=== PATIENT | male | born 1975 ===

== ENCOUNTER 2019-03-06 07:20 | Inpatient (IN) | payer OTHER, MEDICARE ==
[~2019-03-06 07:20] MED LIST: cefOXitin 2 GM Vial ONE
[2019-03-06] MEDS ORDERED: Acetaminophen 500 MG Tab PO ONE (07:40)
[2019-03-06] MEDS ORDERED: Gabapentin 300 MG Cap PO ONE (07:40)
[2019-03-06] MEDS ORDERED: Celecoxib 200 MG Cap PO ONE (07:40)
[2019-03-06] MEDS ORDERED: Dextrose 5%-Lactated Ringers 1,000 ML IV SCH (07:40)
[2019-03-06] MEDS ORDERED: Scopolamine 1.5 MG Transdermal Patch TOP SCH (07:40)
[2019-03-06] MEDS ORDERED: Glycopyrrolate 0.2 MG/ML 5 ML MDV ONE (07:48)
[2019-03-06] MEDS ORDERED: Rocuronium 50 MG/5 ML Vial ONE ×2 (07:48→09:48)
[2019-03-06] MEDS ORDERED: Neostigmine Methylsulfate 1 MG/ML 5 ML Syringe ONE (07:48)
[2019-03-06] MEDS ORDERED: Propofol 200 MG/20 ML SDV ONE (07:48)
[2019-03-06] MEDS ORDERED: Dexamethasone 4 MG/ML SDV ONE (07:48)
[2019-03-06] MEDS ORDERED: Succinylcholine 200 MG/10 ML MDV ONE (07:48)
[2019-03-06] MEDS ORDERED: Ondansetron 4 MG/2 ML SDV ONE (07:48)
[2019-03-06] MEDS ORDERED: cefOXitin 2 GM in Sodium Chloride 0.9% 50 ML IV ONE (08:00)
[2019-03-06] MEDS ORDERED: Metoprolol Succinate 50 MG Tab.ER PO ONE (08:20)
[2019-03-06] MEDS ORDERED: amLODIPine 10 MG Tab PO ONE (08:20)
[2019-03-06 08:26] LABS: HEMOGLOBIN A1C 8.9 % (4.5-6.2)
[2019-03-06] MEDS ORDERED: Ketamine 50 MG in Sodium Chloride 0.9% 49.5 ML IV SCH (09:00)
[2019-03-06] MEDS ORDERED: Lidocaine 2% 100 MG/5 ML Syringe IVPUSH SCH (09:00)
[2019-03-06] MEDS ORDERED: Lidocaine 0.4%/D5W 2 GM/500 ML BAG IV SCH (09:00)
[2019-03-06] MEDS ORDERED: Ketamine 500 MG/5 ML MDV IV SCH (09:00)
[2019-03-06] MEDS ORDERED: Lactated Ringers 1,000 ML ONE ×2 (10:00→11:42)
[2019-03-06] MEDS ORDERED: fentaNYL 100 MCG/2 ML SDV IVPUSH ONE ×2 (13:55→14:17)
[2019-03-06] MEDS ORDERED: hydrOXYzine HCl 100 MG/2 ML SDV IM ONE (13:55)
[2019-03-06] MEDS ORDERED: diphenhydrAMINE 50 MG/ML SDV IVPUSH PRN (15:53)
[2019-03-06] MEDS ORDERED: Labetalol 20 MG/4 ML Syringe IVPUSH PRN (15:53)
[2019-03-06] MEDS ORDERED: HYDROmorphone 0.5 MG/0.5 ML Syringe IVPUSH PRN (15:53)
[2019-03-06] MEDS ORDERED: Metoclopramide 10 MG/2 ML SDV IVPUSH PRN (15:53)
[2019-03-06] MEDS ORDERED: Ondansetron 4 MG/2 ML SDV IVPUSH PRN (15:53)
[2019-03-06] MEDS ORDERED: hydrOXYzine HCl 100 MG/2 ML SDV IM PRN (15:53)
[2019-03-06] MEDS: HYDROmorphone 1 MG/ML Syringe IV PRN ×2 (16:11→22:59)
[2019-03-06] MEDS: cefOXitin 2 GM in Sodium Chloride 0.9% 50 ML IV SCH ×2 (16:16→21:22)
[2019-03-06] MEDS: SCOPOLAMINE PATCH CHECK TOP SCH (16:21)
[2019-03-06] MEDS: Acetaminophen 325 MG Tab PO SCH ×2 (16:22→21:07)
[2019-03-06] MEDS: Heparin Sodium 5,000 Units/ML Vial SUBCUT SCH ×2 (16:22→23:00)
[2019-03-06] MEDS: Insulin Lispro 100 Unit/ML 3 ML KwikPen SUBCUT PRN ×2 (16:32→21:08)
[2019-03-06] MEDS ORDERED: Pantoprazole 40 MG Vial IVPUSH SCH (17:00)
[2019-03-06] MEDS ORDERED: MVI, Adult with Vitamin K 10 ML, Thiamine 200 MG, Chromium/Copper/Mang/Selen/Zn 1 ML in... IV SCH ×4 (17:00)
[2019-03-06] MEDS ORDERED: Insulin Glargine,Human Rec. Analog 100 Units/ML 3 ML Pen SUBCUT SCH (21:00)
[2019-03-06] MEDS ORDERED: Metoprolol Succinate 25 MG Tab.ER PO ONE (21:00)
[2019-03-06] MEDS: Gabapentin 250 MG/5 ML Solution ML 470 ML Bottle PO SCH (21:22)
[2019-03-06] MEDS: Dextrose 5%-Lactated Ringers 1,000 ML IV SCH (23:53)
[2019-03-07] MEDS: HYDROmorphone 1 MG/ML Syringe IV PRN ×2 (03:26→07:06)
[2019-03-07] MEDS: cefOXitin 2 GM in Sodium Chloride 0.9% 50 ML IV SCH (03:26)
[2019-03-07] MEDS ORDERED: Iopamidol 612 MG/ML 50 ML SDV PO STA (03:29)
[2019-03-07] MEDS: Acetaminophen 325 MG Tab PO SCH ×4 (03:30→23:06)
--- NOTE | 2019-03-07 04:53 | CRLCR ---
Indication: Status post duodenal switch. Check for leak. Technique: Abdomen 5 view. Comparison: None. Findings: Five static images from an upper GI study are submitted for review. Per report, patient is status post duodenal switch procedure. Two surgical drains in the left upper quadrant. Over the course of the 5 images, contrast is seen to pass from the gastric pouch into multiple small bowel loops in the left abdomen. Small bowel loops are normal in caliber. No evidence of extraluminal contrast leak. Air is seen within the colon. The lung bases are clear. Impression: No evidence of extraluminal contrast leak. Dictated by Yanni Valdovinos MD @ Mar 07 2019 8:59AM Signed by Dr. Yanni Valdovinos @ Sep 2018 9:04AM
[2019-03-07] MEDS: Dextrose 5%-Lactated Ringers 1,000 ML IV SCH (05:42)
[2019-03-07] MEDS: Insulin Lispro 100 Unit/ML 3 ML KwikPen SUBCUT PRN ×2 (05:43→10:20)
[2019-03-07] MEDS ORDERED: Ondansetron 4 MG Tab.DIS PO PRN (07:04)
[2019-03-07] MEDS ORDERED: Insulin Glargine,Human Rec. Analog 100 Units/ML 3 ML Pen SUBCUT ONE (07:30)
[2019-03-07] MEDS: Celecoxib 200 MG Cap PO SCH (07:58)
[2019-03-07] MEDS: Heparin Sodium 5,000 Units/ML Vial SUBCUT SCH ×3 (08:01→23:05)
[2019-03-07] MEDS: SCOPOLAMINE PATCH CHECK TOP SCH (08:02)
[2019-03-07] MEDS: Lactated Ringers 1,000 ML IV SCH ×2 (08:05→21:42)
[2019-03-07] MEDS: Gabapentin 250 MG/5 ML Solution ML 470 ML Bottle PO SCH ×3 (08:05→20:16)
[2019-03-07] MEDS: Magnesium Sulfate/Water 2 GM in Premix Bag 1 BAG IV SCH ×3 (09:00→20:17)
[2019-03-07] MEDS: amLODIPine 10 MG Tab PO SCH (09:04)
--- NOTE | 2019-03-07 10:31 | PN ---
DATE OF SERVICE: 03/07/2019 SUBJECTIVE: Diaz is postoperative day #1 following a duodenal switch. His blood sugars have been 283, 273, and 303. Vital signs have been stable with the exception of his last 2 blood pressure readings have been slightly elevated at 153/80 and 169/97. Reports that he has numbness and tingling from his shoulders down to his fingertips and he is unable to move his arms. He can bring his right arm up to his face, but then it will just drop. He reports the numbness and tingling, but no pain. Concerned about his left arm, he is unable to bring it up, he is unable to move it with the exception of his fingers. Nursing staff has noticed him moving both arms, but at the time of report, the left arm, he states he is unable to move it. REVIEW OF SYSTEMS: Remainder of review of systems negative for any pertinent positives and negatives. LABORATORY DATA: White count 18.6, hemoglobin is 13.3, potassium was 4.7, creatinine 2.3. Estimated glomerular filtration rate is 31. Magnesium is 1.6. OBJECTIVE: GENERAL: Diaz Molina is a 43-year-old male. He is resting on his back with the CPAP on and he does remove it. He currently will bring up his right hand and it will drop, and he can move his left fingers but unable to lift it. VITAL SIGNS: TPR is 96.2, 88, 18, blood pressure 169/97, he has 98% of O2 sats by pulse oximetry. HEENT: Negative. NECK: Supple. HEART: Regular rate and rhythm. LUNGS: Clear. ABDOMEN: Dressings dry and intact. Abdominal binder is on. He has two RIGO drains, which are draining out a light red drainage. RIGO drain #1 is 60 mL, and RIGO drain #2 is 60. GENITOURINARY: Barnard catheter is in place and draining a clear irineo urine, 2695. EXTREMITIES: Without peripheral edema. SCDs are on. ASSESSMENT: 1. Laparoscopic duodenal switch. 2. Liver biopsy. 3. Repair of diaphragmatic hernia for morbid obesity, hepatomegaly, and diaphragmatic hernia. Date of surgery: 03/06/2019. Surgeon: Anish Morton MD. PLAN: 1. Discontinue Barnard catheter. 2. Step 2 gastric bypass diet without cereal. 3. Change IV to lactated Ringer's, continue rate at 150 mL/h. 4. Magnesium sulfate 2 g IV q.6 hours x72 hours. 5. Discontinue cefoxitin. 6. Discontinue D5 LR IV. 7. Zofran ODT 4 mg q.4 hours p.r.n. nausea. 8. Check CBC, CMP, phos, BNP in a.m. 9. Lantus 50 units subcu one time now. 10.Lantus 30 units subcu starting at bedtime. 11.Alogliptin (Januvia) 25 mg p.o. daily. 12.Restart home medications: a. Norvasc 10 mg p.o. daily. b. Lisinopril/hydrochlorothiazide 50/25 mg one daily. c. Metoprolol-XL 50 mg was already started. d. Dilaudid 2-4 mg every 4 hours for severe pain if Atarax does not cover pain. e. Atarax 100 mg p.o. q.4 hours p.r.n. anxiety and/or pain. f. Ativan 0.5 mg IV push every 2 hours p.r.n. pain if the Vistaril does not cover the anxiety. 13.Consult hospitalist, Estevan Bang MD, in regard to bilateral paresthesias upper and lower arms. 14.Good pulmonary toilet. 15.We will evaluate p.r.n. or in a.m. Yanni Roper PA-C /[id number]
[2019-03-07] MEDS: LORazepam 2 MG/ML SDV IVPUSH PRN ×2 (10:44→22:03)
[2019-03-07] MEDS: MVI, Adult with Vitamin K 10 ML, Thiamine 200 MG, Chromium/Copper/Mang/Selen/Zn 1 ML in... IV SCH ×8 (14:54→16:01)
--- NOTE | 2019-03-07 15:12 | PCM.CONS ---
H&P History of Present Illness - General Date of Service: 03/07/19 Admit Problem/Dx: Admission Diagnosis/Problem Admission Diagnosis/Problem Obesity Source of Information: Patient, Provider History Limitations: Reports: No Limitations - History of Present Illness Initial Comments - Free Text/Narative: CC: my arms are numb HPI: Jayson was admitted yesterday for duodenal switch to aid in weight loss. I was asked to see him today by Dr. Morton regarding upper extremity paresthesias.Post operatively he has developed numbness, tingling, burning pain and weakness in both arms below the elbow. Initially it was mostly numbness and difficulty with coordination but overnight he developed some weakness. he describes a mild burning pain that is worse with any sort of pressure. This pain extends from his elbows distally to his fingers. It goes away when no one is touching his arms. Pain seems to be getting a little bit better throughout the day. He has had difficulty grasping objects and has been clumsy with his hands. He thinks his right hand is stronger than the left and is having slightly more difficulty with the left side. He feels like his brain is not communicating with the arms and especially the left arm. He has been seen by occupational therapy twice today. He has been moving better throughout the course of the day. No complaints of headache. Abdominal pain is minimal at this time. He's never had trouble like this in the past. He has had difficulty with neck and back issues. Abdomen Pain Score (Numeric/FACES): 8 - Related Data Allergies/Adverse Reactions: Allergies Allergy/AdvReac Type Severity Reaction Status Date / Time No Known Allergies Allergy Verified 03/06/19 08:09 Home Medications: Home Meds Acetaminophen/Caffeine [Excedrin Tension Headache] 1 tab PO Q6H PRN 03/02/19 [ History] Ergocalciferol (Vitamin D2) [Vitamin D2] 50,000 unit PO MOWEFR 03/02/19 [History ] Gabapentin [Neurontin] 300 mg PO DAILY 03/02/19 [History] Insulin Aspart [NovoLOG] 47 units SQ TID 03/02/19 [History] Insulin Glargine,Hum.Rec.Anlog [Lantus Solostar] 60 units SQ Q12H 03/02/19 [ History] Lisinopril/Hydrochlorothiazide [Lisinopril-Hctz 20-25 mg Tab] 2 each PO BEDTIME 03/02/19 [History] Metoprolol Succinate [Toprol Xl] 50 mg PO DAILY 03/02/19 [History] Omeprazole Magnesium [Prilosec Otc] 40 mg PO DAILY 03/02/19 [History] amLODIPine Besylate [Norvasc] 10 mg PO DAILY 03/02/19 [History] metFORMIN [Glucophage XR] 1,000 mg PO BIDMEALS 03/07/19 [History] Past Medical History HEENT History: Reports: Other (See Below) Other HEENT History: wears glasses Cardiovascular History: Reports: Hypertension Respiratory History: Reports: Sleep Apnea Gastrointestinal History: Reports: GERD Genitourinary History: Reports: Other (See Below) Other Genitourinary History: born with 1 kidney Musculoskeletal History: Reports: Other (See Below) Other Musculoskeletal History: right knee meniscus tear Psychiatric History: Reports: Anxiety, Depression Endocrine/Metabolic History: Reports: Diabetes, Type II, Obesity/BMI 30+ - Infectious Disease History Infectious Disease History: Reports: Chicken Pox - Past Surgical History GI Surgical History: Reports: Hernia Repair/Other Musculoskeletal Surgical History: Reports: Arthroscopic Knee Social & Family History - Family History Cardiac: Denies: CAD - Tobacco Use Smoking Status *Q: Never Smoker - Caffeine Use Caffeine Use: Reports: Coffee - Recreational Drug Use Recreational Drug Use: No H&P Review of Systems - Review of Systems: Review Of Systems: See Below Free Text/Narrative: A complete 12 point review of systems was obtained. Pertinent positives and negatives are noted in the history of present illness. All other systems were reviewed and were negative except as noted. Exam - Exam Exam: See Below - Vital Signs Vital Signs: Last Vital Signs Temp 35.6 C 03/07/19 14:45 Pulse 86 03/07/19 14:45 Resp 18 03/07/19 14:45 BP 139/86 03/07/19 14:45 Pulse Ox 100 03/07/19 14:45 Weight: 180.62 kg - Exam Quality Assessment: Supplemental Oxygen General: Alert, Oriented, Cooperative. No: Mild Distress HEENT: Conjunctiva Clear, Mucosa Moist & Excello Neck: Supple, Trachea Midline Lungs: Normal Respiratory Effort. No: Wheezing Cardiovascular: Regular Rate, Regular Rhythm GI/Abdominal Exam: Soft, No Distention Extremities: No Pedal Edema. No: Increased Warmth Skin: Warm, Dry Neuro Extensive - Mental Status: Alert, Oriented x3, Nl Response to Commands Neuro Extensive - Motor, Sensory, Reflexes: Abnormal Sensation, Abnormal Light Touch, Abnormal Motor (right hand slightly stronger than the left). No: Dysarthria, Tremor Psychiatric: Alert, Normal Affect - Patient Data Lab Results Last 24 hrs: Laboratory Results - last 24 hr 03/07/19 03/07/19 Range/Units 04:00 04:00 WBC 18.6 H (4.5-11.0) K/uL RBC 4.61 (4.30-5.90) M/uL Hgb 13.3 (12.0-15.0) g/dL Hct 40.1 (40.0-54.0) % MCV 87 (80-98) fL MCH 29 (27-31) pg MCHC 33 (32-36) % Plt Count 381 (150-400) K/uL Neut % (Auto) 89 H (36-66) % Lymph % (Auto) 6 L (24-44) % [place] % (Auto) 6 (2-6) % Eos % (Auto) 0 L (2-4) % Baso % (Auto) 0 (0-1) % Sodium 134 L (140-148) mmol/L Potassium 4.7 (3.6-5.2) mmol/L Chloride 98 L (100-108) mmol/L Carbon Dioxide 25 (21-32) mmol/L Anion Gap 15.7 H (5.0-14.0) mmol/L BUN 23 H (7-18) mg/dL Creatinine 2.3 H (0.8-1.3) mg/dL Est Cr Clr Drug Dosing 48.15 mL/min Estimated GFR (MDRD) 31 L (>60) Glucose 303 H (74-106) mg/dL Calcium 8.9 (8.5-10.1) mg/dL Phosphorus 3.1 (2.5-4.9) mg/dL Magnesium 1.6 L (1.8-2.4) mg/dL Total Bilirubin 0.4 (0.2-1.0) mg/dL AST 477 H (15-37) U/L ALT 455 H (12-78) U/L Alkaline Phosphatase 65 (46-116) U/L NT-Pro-B Natriuret Pep 149 H (5-125) pg/mL Total Protein 7.8 (6.4-8.2) g/dL Albumin 3.3 L (3.4-5.0) g/dL Globulin 4.5 H (2.3-3.5) g/dL Albumin/Globulin Ratio 0.7 L (1.2-2.2) Result Diagrams: 03/07/19 04:00 03/07/19 04:00 Consult PN Assessment/Plan POD#: 1 Procedures: Procedures BLOOD TYPING SEROLOGIC ABO (01/05/19) BLOOD TYPING SEROLOGIC RH(D) (01/05/19) RBC ANTIBODY SCREEN (01/05/19) Problem List Initiated/Reviewed/Updated: Yes Plan: ASSESSMENT AND PLAN - Upper extremity paresthesias - suspect thoracic outlet syndrome, most likely related to nerve compression. Cannot completely rule out a vascular component at this time though no obvious differences in temperature or pulse at this time. Seems to be slowly getting better throughout the day. Motor seems to be intact for the most part with sensation affected most significantly at this time. I would anticipate this will continue to improve and resolve over a short period of time. -Physical and occupational therapy -Consider vascular imaging if not improving over the next 24-48 hours Morbid obesity status post duodenal switch - pain well-controlled at this time. Vitals are stable. -Postoperative cares per surgical team Estevan Bang M.D. Requesting Provider: Dr. Morton Date Consult Requested: 03/07/19 Reason for Consult: upper extremity paresthesias Patient History Reviewed: Yes Admission H&P Reviewed: Yes Notified Requestor: No Time Spent (in minutes): 45
[2019-03-07] MEDS: HYDROmorphone 2 MG Tab PO PRN ×2 (15:28→20:16)
[2019-03-07] MEDS: Pantoprazole 40 MG Delayed-Release Granules 1 Packet PO SCH (16:03)
[2019-03-07] MEDS: hydrOXYzine HCl 25 MG Tab PO PRN ×2 (17:30→21:41)
[2019-03-07] MEDS: Lisinopril 20 MG Tab PO SCH (20:17)
[2019-03-07] MEDS: Hydrochlorothiazide 25 MG Tab PO SCH (20:18)
[2019-03-07] MEDS: Metoprolol Succinate 50 MG Tab.ER PO SCH (20:18)
[2019-03-07] MEDS ORDERED: Insulin Glargine,Human Rec. Analog 100 Units/ML 3 ML Pen SUBCUT SCH (21:00)
[2019-03-08] MEDS: Magnesium Sulfate/Water 2 GM in Premix Bag 1 BAG IV SCH ×4 (02:55→20:14)
[2019-03-08] MEDS: Lactated Ringers 1,000 ML IV SCH (04:42)
[2019-03-08] MEDS: Acetaminophen 325 MG Tab PO SCH ×4 (04:58→21:41)
[2019-03-08] MEDS: hydrOXYzine HCl 25 MG Tab PO PRN (05:15)
[2019-03-08] MEDS ORDERED: Cyanocobalamin (Vitamin B12) 1,000 MCG/ML SDV IM ONE (09:00)
[2019-03-08] MEDS: HYDROmorphone 2 MG Tab PO PRN ×3 (09:08→21:39)
[2019-03-08] MEDS: Celecoxib 200 MG Cap PO SCH (09:09)
[2019-03-08] MEDS: Gabapentin 250 MG/5 ML Solution ML 470 ML Bottle PO SCH ×3 (09:09→21:48)
[2019-03-08] MEDS: amLODIPine 10 MG Tab PO SCH (09:10)
[2019-03-08] MEDS: Heparin Sodium 5,000 Units/ML Vial SUBCUT SCH ×2 (09:14→16:53)
[2019-03-08] MEDS: SCOPOLAMINE PATCH CHECK TOP SCH (09:16)
--- NOTE | 2019-03-08 09:40 | PN ---
DATE OF SERVICE: 03/08/2019 SUBJECTIVE: Jayson is postop day 2. He remains to report the numbness and tingling in his left arm. He is moving it. Vital signs have been stable. Oral intake 1920. Urine output 3000 mL. RIGO drain 1 and 2 have put out 100 and 70 respectively. Blood sugars have decreased. His last blood sugar in the past 24 hours 199, 186, and 183. He did have a hospitalist consult and his numbness and difficulty with coordination thought to be thoracic outlet syndrome. REVIEW OF SYSTEMS: Remainder of review of systems negative for any pertinent positives and negatives. OBJECTIVE: GENERAL: Diaz Molina is a 43-year-old male. He has a CPAP on, but is able to converse with that on. VITAL SIGNS: TPR is 96.2, 84, 16. Blood pressure is 163/84. HEENT: Negative. NECK: Supple. HEART: Regular rate and rhythm. LUNGS: Clear. ABDOMEN: Dressing is dry and intact. Abdominal binder is on. RIGO drains x2 intact. EXTREMITIES: Without peripheral edema. ASSESSMENT: 1. Laparoscopic duodenal switch. 2. Liver biopsy. 3. Repair of diaphragmatic hernia for morbid obesity, hepatomegaly, and diaphragmatic hernia. Date of surgery 03/06/2019. Surgeon, Anish Morton MD. 4. Diabetes type 2. 5. Questionable thoracic outlet syndrome. PLAN: 1. Check ultrasound to rule out DVT, left upper extremity. 2. Lantus 20 units subcu b.i.d. 3. Saline lock IV. 4. May shower. 5. Good pulmonary toilet. 6. We will evaluate p.r.n. or in a.m. Yanni Roper PA-C /[id number]
--- NOTE | 2019-03-08 10:59 | CRLCR ---
INDICATION: Thoracic outlet syndrome. Evaluate 1st ribs. COMPARISON: none TECHNIQUE: PA chest and bilateral ribs. FINDINGS: There is mild enlargement of the cardiac silhouette but no evidence of vascular congestion. Lungs are clear. There is no evidence of pneumothorax. There is no evidence of a cervical rib. There is attenuation of the posterior right 2nd rib. The left ribs appear normal. IMPRESSION: Attenuated and thinned appearance of the posterior right 2nd rib. No evidence of a suspicious soft tissue mass. No evidence of a cervical rib. Dictated by Alin Meadows MD @ 03/08/2019 10:58:20 AM Dictated by: Alin Meadows MD @ 03/08/2019 10:58:27 (Electronically Signed)
[2019-03-08] MEDS: Pantoprazole 40 MG Delayed-Release Granules 1 Packet PO SCH ×2 (11:03→16:42)
[2019-03-08] MEDS: Insulin Glargine,Human Rec. Analog 100 Units/ML 3 ML Pen SUBCUT SCH ×2 (11:04→21:49)
--- NOTE | 2019-03-08 12:19 | PCM.CONSN ---
- General Info Date of Service: 03/08/19 Subjective Update: No acute events overnight. Numbness and tingling are much better but not quite resolved. Right hand is nearly back to normal. Left hand is much improved but not back to normal. Strength seems better. Still having a little difficulty with coordination of the left hand. No fevers. Abdominal pain from surgery is well-controlled. Ultrasounds of the upper extremity venous and arterial vasculature have been completed but results are pending. Functional Status: Reports: Pain Controlled, Tolerating Diet - Patient Data Vitals - Most Recent: Last Vital Signs Temp 35.8 C 03/08/19 10:54 Pulse 92 03/08/19 10:54 Resp 16 03/08/19 10:54 BP 166/80 H 03/08/19 10:54 Pulse Ox 95 03/08/19 10:54 Weight - Most Recent: 180.62 kg I&O - Last 24 Hours: Intake & Output 03/07/19 03/08/19 03/08/19 22:59 06:59 14:59 Intake Total 1530 2066 180 Output Total 800 2130 1300 Balance Lab Results Last 24 Hours: Laboratory Results - last 24 hr 03/08/19 03/08/19 Range/Units 04:00 04:00 WBC 12.6 H (4.5-11.0) K/uL RBC 4.14 L (4.30-5.90) M/uL Hgb 11.9 L (12.0-15.0) g/dL Hct 36.9 L (40.0-54.0) % MCV 89 (80-98) fL MCH 29 (27-31) pg MCHC 32 (32-36) % Plt Count 298 (150-400) K/uL Sodium 137 L (140-148) mmol/L Potassium 3.9 (3.6-5.2) mmol/L Chloride 101 (100-108) mmol/L Carbon Dioxide 28 (21-32) mmol/L Anion Gap 11.9 (5.0-14.0) mmol/L BUN 16 (7-18) mg/dL Creatinine 1.2 (0.8-1.3) mg/dL Est Cr Clr Drug Dosing 92.28 mL/min Estimated GFR (MDRD) > 60 (>60) Glucose 184 H (74-106) mg/dL Calcium 8.7 (8.5-10.1) mg/dL Phosphorus 3.0 (2.5-4.9) mg/dL Total Bilirubin 0.3 (0.2-1.0) mg/dL AST 324 H (15-37) U/L ALT 471 H (12-78) U/L Alkaline Phosphatase 54 (46-116) U/L NT-Pro-B Natriuret Pep 51 (5-125) pg/mL Total Protein 6.8 (6.4-8.2) g/dL Albumin 2.9 L (3.4-5.0) g/dL Globulin 3.9 H (2.3-3.5) g/dL Albumin/Globulin Ratio 0.7 L (1.2-2.2) Med Orders - Current: Current Medications Acetaminophen (Tylenol) 650 mg PO Q6H [facility] Last Admin: 03/08/19 11:02 Dose: 650 mg Alogliptin Benzoate (Alogliptin) 25 mg PO DAILY [facility] Last Admin: 03/08/19 09:09 Dose: 25 mg Amlodipine Besylate (Norvasc) 10 mg PO DAILY [facility] Last Admin: 03/08/19 09:10 Dose: 10 mg Celecoxib (Celebrex) 200 mg PO DAILY@0800 [facility] Last Admin: 03/08/19 09:09 Dose: 200 mg Diphenhydramine HCl (Benadryl) 50 mg IVPUSH Q4H PRN PRN Reason: ITCHING Gabapentin (Neurontin) 300 mg PO TID [facility] Last Admin: 03/08/19 09:09 Dose: 300 mg Heparin Sodium (Porcine) (Heparin Sodium) 5,000 units SUBCUT Q8H [facility] Last Admin: 03/08/19 09:14 Dose: 5,000 units Hydrochlorothiazide (Hydrochlorothiazide) 50 mg PO BEDTIME [facility] Last Admin: 03/07/19 20:18 Dose: 50 mg Hydromorphone HCl (Dilaudid) 2 - 4 mg PO Q4H PRN PRN Reason: Pain Last Admin: 03/08/19 09:08 Dose: 4 mg Hydroxyzine HCl (Vistaril) 100 mg IM Q4H PRN PRN Reason: pain Last Admin: 03/06/19 21:10 Dose: 100 mg Hydroxyzine HCl (Atarax) 100 mg PO Q4H PRN PRN Reason: anxiety/pain Last Admin: 03/08/19 05:15 Dose: 100 mg Lactated Ringer's (Ringers, Lactated) 1,000 mls @ 150 mls/hr IV ASDIRECTED [facility] Last Admin: 03/08/19 04:42 Dose: 150 mls/hr Magnesium Sulfate 2 gm/ Premix 50 mls @ 25 mls/hr IV Q6H [facility] Stop: 03/10/19 03:59 Last Admin: 03/08/19 09:15 Dose: 25 mls/hr Multivitamins/Minerals 10 ml/Thiamine HCl 200 mg/ Chromium/Copper/Manganese/ Seleni/Zn 1 ml/ Lactated Ringer's 1,013 mls @ 150 mls/hr IV DAILY@1600 [facility] Last Admin: 03/07/19 16:01 Dose: Not Given Insulin Glargine (Lantus Solostar) 20 units SUBCUT BID [facility] Last Admin: 03/08/19 11:04 Dose: 20 units Insulin Human Lispro (Humalog) 0 unit SUBCUT Q6H PRN; Protocol PRN Reason: CORRECTIONAL DOSING Last Admin: 03/07/19 10:20 Dose: 5 units Labetalol HCl (Normodyne) 5 mg IVPUSH Q5M PRN PRN Reason: SBP over 160 OR DBP over 95 Lisinopril (Prinivil) 40 mg PO BEDTIME [facility] Last Admin: 03/07/19 20:17 Dose: 40 mg Lorazepam (Ativan) 0.5 mg IVPUSH Q2H PRN PRN Reason: anxiety try Vistaril first Last Admin: 03/07/19 22:03 Dose: 0.5 mg Metoclopramide HCl (Reglan) 10 mg IVPUSH Q6H PRN PRN Reason: NAUSEA NOT CONTROL BY ZOFRAN Metoprolol Succinate (Toprol Xl) 50 mg PO BEDTIME [facility] Last Admin: 03/07/19 20:18 Dose: 50 mg Scopolamine Patch (Check) 1 each TOP DAILY [facility] Stop: 03/08/19 17:01 Last Admin: 03/08/19 09:16 Dose: Not Given Ondansetron HCl (Zofran) 4 mg IVPUSH Q4H PRN PRN Reason: Nausea/Vomiting Ondansetron HCl (Zofran Odt) 4 mg PO Q4H PRN PRN Reason: Nausea/Vomiting Pantoprazole Sodium (Protonix Granules) 40 mg PO Q24H [facility] Last Admin: 03/08/19 11:03 Dose: 40 mg Discontinued Medications Acetaminophen (Tylenol Extra Strength) 1,000 mg PO ONETIME ONE Stop: 03/06/19 07:41 Last Admin: 03/06/19 08:06 Dose: 1,000 mg Amlodipine Besylate (Norvasc) 10 mg PO ONETIME ONE Stop: 03/06/19 08:21 Last Admin: 03/06/19 08:29 Dose: 10 mg Cefoxitin Sodium (Mefoxin) Confirm Administered Dose 2 gm .ROUTE .STK-MED ONE Stop: 03/06/19 06:56 Last Admin: 03/06/19 09:52 Dose: 2 gm Celecoxib (Celebrex) 200 mg PO ONETIME ONE Stop: 03/06/19 07:41 Last Admin: 03/06/19 08:06 Dose: 200 mg Ropivacaine 60 ml/Dexamethasone 8 mg/Epinephrine HCl 0.4 mg/ Sodium Chloride 17.6 ml 0 ml NERVRT ASDIRECTED [facility] Last Admin: 03/06/19 09:22 Dose: 80 syringe Cyanocobalamin (Vitamin B12) 1,000 mcg IM ONETIME ONE Stop: 03/08/19 09:01 Last Admin: 03/08/19 11:03 Dose: 1,000 mcg Dexamethasone (Dexamethasone) Confirm Administered Dose 4 mg .ROUTE .STK-MED ONE Stop: 03/06/19 07:49 Fentanyl (Sublimaze) 50 mcg IVPUSH ONETIME ONE Stop: 03/06/19 13:56 Last Admin: 03/06/19 14:04 Dose: 50 mcg Fentanyl (Sublimaze) 50 mcg IVPUSH ONETIME ONE Stop: 03/06/19 14:18 Last Admin: 03/06/19 14:22 Dose: 50 mcg Fentanyl Citrate (Fentanyl) Confirm Administered Dose 500 mcg .ROUTE .STK-MED ONE Stop: 03/06/19 07:50 Gabapentin (Neurontin) 300 mg PO ONETIME ONE Stop: 03/06/19 07:41 Last Admin: 03/06/19 08:06 Dose: 300 mg Glycopyrrolate (Robinul) Confirm Administered Dose 1 mg .ROUTE .STK-MED ONE Stop: 03/06/19 07:49 Hydromorphone HCl (Dilaudid) 0.5 mg IVPUSH Q2H PRN PRN Reason: MODERATE PAIN Hydromorphone HCl (Dilaudid) 1 mg IV Q2H PRN PRN Reason: SEVERE PAIN Last Admin: 03/07/19 07:06 Dose: 1 mg Hydroxyzine HCl (Vistaril) 100 mg IM ONETIME ONE Stop: 03/06/19 13:56 Last Admin: 03/06/19 14:04 Dose: 100 mg Ketamine HCl 50 mg/ Sodium (Chloride) 50 mls @ 23.28 mls/hr IV ASDIRECTED [facility] Cefoxitin Sodium 2 gm/ Sodium (Chloride) 50 mls @ 100 mls/hr IV ONETIME ONE Stop: 03/06/19 08:29 Last Admin: 03/06/19 08:52 Dose: 100 mls/hr Dextrose/Lactated Ringer's (Dextrose 5%-Lactated Ringers) 1,000 mls @ 100 mls/ hr IV ASDIRECTED [facility] Last Admin: 03/06/19 08:30 Dose: 100 mls/hr Lidocaine HCl/Dextrose (Lidocaine 2 Gm/D5w 500 Ml) 2 gm in 500 mls @ 22.5 mls/ hr IV .[id number] [facility] Stop: 03/07/19 07:13 Last Admin: 03/06/19 15:16 Dose: 1.5 mg/min, 22.5 mls/hr Insulin Human Regular 100 unit (/ Sodium Chloride) 100 mls @ 0 mls/hr IV TITRATE WOO; Protocol Lactated Ringer's (Ringers, Lactated) Confirm Administered Dose 1,000 mls @ as directed .ROUTE .STK-MED ONE Stop: 03/06/19 10:01 Lactated Ringer's (Ringers, Lactated) Confirm Administered Dose 1,000 mls @ as directed .ROUTE .STK-MED ONE Stop: 03/06/19 11:43 Multivitamins/Minerals 10 ml/Thiamine HCl 200 mg/ Chromium/Copper/Manganese/ Seleni/Zn 1 ml/ Dextrose/Lactated Ringer's 1,013 mls @ 200 mls/hr IV DAILY@ 1600 [facility] Last Admin: 03/06/19 16:16 Dose: 200 mls/hr Cefoxitin Sodium 2 gm/ Sodium (Chloride) 50 mls @ 100 mls/hr IV Q6H [facility] Stop: 03/07/19 16:29 Last Admin: 03/07/19 03:26 Dose: 100 mls/hr Dextrose/Lactated Ringer's (Dextrose 5%-Lactated Ringers) 1,000 mls @ 200 mls/ hr IV ASDIRECTED [facility] Last Admin: 03/07/19 05:42 Dose: 200 mls/hr Insulin Glargine (Lantus Solostar) 35 units SUBCUT BEDTIME [facility] Stop: 03/06/19 21:01 Last Admin: 03/06/19 21:08 Dose: 35 units Insulin Glargine (Lantus Solostar) 50 units SUBCUT ONETIME ONE Stop: 03/07/19 07:31 Last Admin: 03/07/19 07:59 Dose: 50 units Insulin Glargine (Lantus Solostar) 30 units SUBCUT BID [facility] Last Admin: 03/07/19 23:05 Dose: 30 units Iopamidol (Isovue-300 (61%)) 50 ml PO ASDIRECTED [facility] Stop: 03/07/19 03:30 Last Admin: 03/07/19 03:45 Dose: 50 ml Ketamine HCl (Ketalar) 39 mg IV ASDIRECTED [facility] Lidocaine HCl (Xylocaine 2%) 180 mg IVPUSH ASDIRECTED [facility] Metoprolol Succinate (Toprol Xl) 50 mg PO ONETIME ONE Stop: 03/06/19 08:21 Last Admin: 03/06/19 08:29 Dose: 50 mg Metoprolol Succinate (Toprol Xl) 25 mg PO ONETIME ONE Stop: 03/06/19 21:01 Last Admin: 03/06/19 21:08 Dose: 25 mg Miscellaneous Information (Remove Patch) 1 ea TRDERM ONETIME ONE Stop: 03/08/19 10:01 Last Admin: 03/08/19 11:07 Dose: Not Given Neostigmine Methylsulfate (Neostigmine) Confirm Administered Dose 5 mg .ROUTE .STK-MED ONE Stop: 03/06/19 07:49 Ondansetron HCl (Zofran) Confirm Administered Dose 4 mg .ROUTE .STK-MED ONE Stop: 03/06/19 07:49 Pantoprazole Sodium (Protonix Iv) 40 mg IVPUSH Q24H [facility] Last Admin: 03/06/19 16:22 Dose: 40 mg Pharmacy Consult (Consult To Pharmacy) 1 each .XX ASDIRECTED [facility] Stop: 03/06/19 18:00 Propofol (Diprivan 20 Ml) Confirm Administered Dose 200 mg .ROUTE .STK-MED ONE Stop: 03/06/19 07:49 Rocuronium Wesley (Zemuron) Confirm Administered Dose 50 mg .ROUTE .STK-MED ONE Stop: 03/06/19 07:49 Rocuronium Wesley (Zemuron) Confirm Administered Dose 50 mg .ROUTE .STK-MED ONE Stop: 03/06/19 09:49 Scopolamine (Transderm-Scop) 1.5 mg TOP Q72H [facility] Stop: 03/08/19 10:00 Last Admin: 03/06/19 08:08 Dose: 1.5 mg Succinylcholine Chloride (Quelicin) Confirm Administered Dose 200 mg .ROUTE .STK -MED ONE Stop: 03/06/19 07:49 - Exam Quality Assessment: No: Supplemental Oxygen General: Alert, Oriented, Cooperative, No Acute Distress Lungs: Normal Respiratory Effort GI/Abdominal Exam: Soft, No Distention Extremities: Other (no swelling right arm, trace edema left arm around the wrist and dorsum of the hand ). No: Increased Warmth Neurological: No New Focal Deficit Psy/Mental Status: Alert, Normal Affect Consult PN Assessment/Plan POD#: 2 Procedures: Procedures BLOOD TYPING SEROLOGIC ABO (01/05/19) BLOOD TYPING SEROLOGIC RH(D) (01/05/19) RBC ANTIBODY SCREEN (01/05/19) Problem List Initiated/Reviewed/Updated: Yes Plan: ASSESSMENT AND PLAN - Upper extremity paresthesias - suspect thoracic outlet syndrome, most likely related to nerve compression. Cannot completely rule out a vascular component at this time though no obvious differences in temperature or pulse at this time. Doing much better today but not quite back to normal at this time. X-rays did not suggest bony abnormality. Vascular ultrasounds are pending. -Physical and occupational therapy -Follow-up vascular ultrasound Morbid obesity status post duodenal switch - doing well postoperatively. -Postoperative cares per surgical team Estevan Bang M.D.
--- NOTE | 2019-03-08 14:43 | CRLUS ---
Indication: Numbness and tingling in the upper extremities. Rule out thoracic outlet syndrome. Technique: Grayscale and color Doppler imaging of the bilateral subclavian arteries and veins was performed. Comparison: None. Findings: Right subclavian vein, right axillary and right brachiocephalic vein demonstrate no evidence of focal stenosis or thrombosis. Left subclavian vein, left axillary and left brachiocephalic vein demonstrate no evidence of focal stenosis or thrombosis. Right axillary artery and right radial artery demonstrate normal triphasic wave forms with no change in flow velocities between neutral and 90 degree arm abduction. Left axillary and left radial artery demonstrate normal triphasic wave forms with no change in flow velocities between neutral and 90 degree arm abduction. Impression: 1. No sonographic findings for arterial or venous thoracic outlet syndrome. 2. The proximal subclavian arteries were not imaged on this exam. If there is concern for proximal subclavian artery stenosis, consider further evaluation with CT angiography. Dictated by Robin Kaur MD @ Mar 08 2019 2:28PM Signed by Dr. Robin Kaur @ Mar 08 2019 2:41PM
[2019-03-08] MEDS: MVI, Adult with Vitamin K 10 ML, Thiamine 200 MG, Chromium/Copper/Mang/Selen/Zn 1 ML in... IV SCH ×4 (16:43)
[2019-03-08] MEDS: Insulin Lispro 100 Unit/ML 3 ML KwikPen SUBCUT PRN (18:15)
[2019-03-08] MEDS: Hydrochlorothiazide 25 MG Tab PO SCH (21:42)
[2019-03-08] MEDS: Lisinopril 20 MG Tab PO SCH (21:42)
[2019-03-08] MEDS: Metoprolol Succinate 50 MG Tab.ER PO SCH (21:43)
[2019-03-09] MEDS: Heparin Sodium 5,000 Units/ML Vial SUBCUT SCH ×2 (00:28→08:23)
[2019-03-09] MEDS: Magnesium Sulfate/Water 2 GM in Premix Bag 1 BAG IV SCH ×2 (01:41→09:35)
[2019-03-09] MEDS: Acetaminophen 325 MG Tab PO SCH ×2 (03:11→10:31)
[2019-03-09] MEDS: HYDROmorphone 2 MG Tab PO PRN ×2 (03:16→12:23)
[2019-03-09] MEDS: amLODIPine 10 MG Tab PO SCH (08:23)
[2019-03-09] MEDS: Celecoxib 200 MG Cap PO SCH (08:23)
[2019-03-09] MEDS: Gabapentin 250 MG/5 ML Solution ML 470 ML Bottle PO SCH (08:39)
[2019-03-09] MEDS: Insulin Glargine,Human Rec. Analog 100 Units/ML 3 ML Pen SUBCUT SCH (10:31)
--- NOTE | 2019-03-09 14:05 | CRLUS ---
Final Report: Indication: Numbness and tingling in the upper extremities. Rule out thoracic outlet syndrome. Technique: Grayscale and color Doppler imaging of the bilateral subclavian arteries and veins was performed. Comparison: None. Findings: Right subclavian vein, right axillary and right brachiocephalic vein demonstrate no evidence of focal stenosis or thrombosis. Left subclavian vein, left axillary and left brachiocephalic vein demonstrate no evidence of focal stenosis or thrombosis. Right axillary artery and right radial artery demonstrate normal triphasic wave forms with no change in flow velocities between neutral and 90 degree arm abduction. Left axillary and left radial artery demonstrate normal triphasic wave forms with no change in flow velocities between neutral and 90 degree arm abduction. Impression: 1. No sonographic findings for arterial or venous thoracic outlet syndrome. 2. The proximal subclavian arteries were not imaged on this exam. If there is concern for proximal subclavian artery stenosis, consider further evaluation with CT angiography. Dictated by Robin Kaur MD @ Mar 08 2019 2:28PM Signed by: Robin Kaur MD @03/08/2019 2:41:41 PM (Electronic Signature) MTDD
--- NOTE | 2019-03-10 11:48 | DISCH ---
ADMISSION DIAGNOSES: 1. Morbid obesity, BMI 51. 2. Uncontrolled diabetes type 2. 3. Congenital absence of left kidney. 4. Depression with anxiety. 5. Hypertension. 6. Severe sleep apnea with use of CPAP. 7. Microalbuminuria. 8. Complex sleep apnea syndrome. 9. Gastroesophageal reflux disease with esophagitis. 10.Chronic back and neck pain. 11.Chronic kidney disease stage 3. DISCHARGE DIAGNOSES: 1. Laparoscopic duodenal switch. 2. Liver biopsy. 3. Repair of diaphragmatic hernia. 4. Postoperative diagnoses: a. Morbid IV obesity. b. Hepatomegaly. c. Diaphragmatic hernia. Date of surgery 03/06/2019. Surgeon, Anish Morton MD. d. Neurological postop thoracic outlet syndrome versus brachial plexus. HISTORY: Diaz Molina is a pleasant 43-year-old male with morbid obesity and increasing comorbidities. After preoperative evaluation and discussion of possible risks and possible complications, he wished to proceed with surgical procedure. HOSPITAL COURSE: Jayson had his surgery on 03/06/2019. He had no operative complications. On postoperative day #1, several hours after surgery, he reported numbness, tingling, and loss of motor control of both arms from shoulders down. It did improve as time went on. He did have hospitalist consultation, and was thought to be thoracic outlet syndrome. His symptoms did improve. Ultrasound to rule out any arterial or vascular etiology was ruled out as negative for upper extremity paresis, suspect thoracic outlet syndrome likely related to nerve compression postoperatively. Consult with neurologist will be made prior to discharge. PHYSICAL EXAMINATION: GENERAL: Diaz Weems is a 43-year-old male. Height is 6 feet 2 inches, weight is 398 pounds, BMI is 51. VITAL SIGNS: TPR 96.3, 81, 16; blood pressure 151/87. HEENT: Negative. NECK: Supple. HEART: Regular rate and rhythm. LUNGS: Clear. ABDOMEN: Incisions look good. RIGO drains x2 intact, draining a light pink drainage. These will be removed prior to discharge. Abdominal binder has been on. EXTREMITIES: Without peripheral edema. DISPOSITION: Discharged home. CONDITION: Stable and improving. FOLLOWUP APPOINTMENT: Yanni Roper PA-C, on 03/14/2019 at 9:15 a.m., appointment is to be at [place], [place]. DISCHARGE MEDICATIONS: New prescriptions: 1. Tylenol 650 mg oral q.6 hours. 2. Alogliptin 25 mg oral daily, #30, with 11 refills. 3. Celebrex 200 mg oral daily, #14. 4. He is to decrease the metformin to 500 mg oral twice daily. He is to cut the 1000 mg in half. 5. Zofran ODT 4 mg every 4 hours p.r.n. nausea, #30. To resume home medication of: 1. Neurontin 300 mg oral daily. 2. Lisinopril/hydrochlorothiazide 20/25 mg 2 each at bedtime. 3. Metoprolol 50 mg oral daily. 4. Omeprazole 40 mg oral daily. 5. Norvasc 10 mg oral daily. He is to discontinue takin. Excedrin Tension Migraine. 2. Vitamin D3. 3. Lantus insulin. 4. NovoLog. DIET: Step 2 gastric bypass diet with no cereal for 30 days until 04/06/2019. Drink 8 to 10 glasses of water a day. ACTIVITY: No lifting over 10 pounds for 2 weeks. Walk at least 6 times daily inside your home. Driving: Do not drive for 1 week. May shower. DISCHARGE INSTRUCTIONS: Notify provider if any fever, increased pain, nausea, or vomiting. Keep site clean and dry. Wear abdominal binder for 2 weeks and as tolerated. Special instructions: 1. Use incentive spirometer 10 times every hour while awake. 2. Check blood sugars twice a day and call the clinic daily with results at [phone]. 3. Keep record of protein and liquid intake and bring to clinic appointment.
--- NOTE | 2019-03-13 08:06 | OR ---
DATE OF PROCEDURE: 03/06/2019 SURGEON: Anish Morton MD PREOPERATIVE DIAGNOSIS: Morbid obesity. POSTOPERATIVE DIAGNOSES: 1. Morbid obesity. 2. Marked hepatomegaly. 3. Paraesophageal diaphragmatic hernia. OPERATIVE PROCEDURES: Diagnostic laparoscopy with: 1. Laparoscopic duodenal switch (28705). 2. Yung-Cut needle liver biopsy (10284). 3. Repair of paraesophageal diaphragmatic hernia (46402). ANESTHESIA: General. RELIGION INSTRUCTOR: Yanni Roper PA-C. INDICATIONS FOR PROCEDURE: This is a 43-year-old presenting with severe morbid obesity with a weight of over 400 pounds. After preop evaluation and discussion, he wished to proceed with duodenal switch. Potential risks including bleeding, infection, leaks from various GI tract closures, problems with bowel obstruction over time, as well as possibility of cardiopulmonary, septic, or hemorrhagic complications leading to were discussed, and the patient wishes to proceed. DETAILS OF PROCEDURE: The patient was taken to the operating room and placed in a supine position. After general endotracheal anesthesia was induced, he converted to a lithotomy position and the abdomen prepped and draped. At 20 cm inferior and 5 cm left of xiphoid process, a transverse incision was made and the peritoneal cavity entered under direct vision with an Optiview trocar, inflated to 15 mmHg pressure with CO2. Laparoscope was then reinserted. No underlying trocar insertion site injuries were seen. Following this, bilateral transversus abdominis plane blocks were placed, and the abdomen was examined. The patient was noted to have marked hepatomegaly with the liver being grossly fatty infiltrated and quite enlarged, and Yung-Cut needle biopsy obtained from left lobe of the liver. At this point, the small bowel was identified at the ileocecal valve and then walked back 300 cm. The bowel, at this point, did appear to be adequately mobile to get up to the area of the duodenum. This was then sutured up to the omentum just below the transverse colon. At this point, the liver was retracted anteriorly, the patient was noted to have a moderate- sized paraesophageal diaphragmatic hernia. This was reduced after division of the peritoneum overlying the hernia and reflected downward, and anterior repair of the diaphragmatic hernia was accomplished with 0 Ethibond sutures reinforced with PTFE pledgets. At this point, the greater omentum was begun to be divided off the greater curvature of the stomach, beginning in the mid stomach. This continued proximally up to and through the short gastric vessels, including the highest and posterior short gastric vessels. The dissection of the omentum then continued distally to a point roughly 4 cm distal to the pyloric sphincter, again with the Harmonic Scalpel. Some loose congenital type adhesions behind the stomach to the retroperitoneum were then divided as well. At that point, the stomach appeared to be satisfactorily freed for the subsequent resectional phase of the procedure. The pyloric sphincter was identified. The duodenum was retracted anteriorly. Dissection began on the duodenal wall and continued to a point around 4 cm distal to the pylorus, and at that point the duodenum was circumferentially dissected free and was divided with a WILY purple reinforced load. Both staple lines appeared to be intact. The resectional phase then began. The area of the division of the antrum and incisura angularis was initially marked out, beginning 6 cm proximal to the pylorus and care taken to avoid overtightening of the incisura angularis. First three firings were the WILY black loads. A size 40-[place] chest tube was then passed orally and was brought into the stomach and from there positioned along the lesser curvature of the stomach. The remainder of the gastrectomy was then accomplished with combination of reinforced purple and reinforced black loads and the resection specimen then delivered off to the side. The staple line was inspected and found to be clean and intact in all areas. At this point, the duodenum was then brought up. Two additional sutures with 3-0 Vicryl stitch were placed, one between the antimesenteric border of the small bowel at the previously marked site 300 cm proximal to the ileocecal valve and the superior aspect of the divided duodenum, the second stitch to somewhat more proximal small bowel to the inferior aspect of the duodenum. The sutures were placed to initially position the duodenum and ileum for the subsequent anastomosis. Using the reinforced wall of the divided duodenum, a posterior row of 2-0 Vicryl stitch was then placed, beginning in the superior aspect of the point of the duodenoileostomy, continuing down inferiorly. Once these were in place, these were then tied. 3 cm enterotomies in both the duodenum and the ileum were then accomplished with electrocautery with Harmonic Scalpel. Initially, a posterior layer of 3-0 Vicryl stitch was then placed, beginning in the superior quadrant of the anastomosis, continuing downward along the inferior aspect of the anastomosis, and from that point, continued somewhat anteriorly as well. The second layer of sutures for the full-thickness bite was initiated at the superior end, and this was then tied and the original sutures being placed at that location. This was continued around the corner and up along the anterior aspect until the two sutures were united on the anterior aspect and tied, so the inner layer was full-thickness running Vicryl stitch circumferentially. The anterior row of seromuscular stitches was then place as well, using a running 2-0 Vicryl stitch. The area was then inspected and the duodenoileostomy covered circumferentially with some fibrin sealant. A leak test was initiated with injection of air via the chest tube, distending the stomach. No leaks were seen along the gastrectomy staple line. Initially no air was seen flowing through the duodenoileostomy. Upper GI endoscope was passed, which then appeared down into the area of the duodenoileostomy, and with additional pressure, that became widely open and was clearly patent. The scope was then withdrawn and the area evacuated. At this point, additional fibrin sealant was placed along the sleeve gastrectomy line, focusing completely on the area of the esophagogastric junction and omentum was brought up against the entire length of the sleeve gastrectomy staple line as well. At this point, no further problems were noted. Gastric specimen was retrieved through the left lateral trocar site and 2 Dylan-Hoffman drains were placed, one placed into the area around the esophagogastric junction and the other over the area of the duodenoileostomy duodenal stump, both were brought out through the left subcostal trocar sites. At that point, no further problems were noted. Abdomen had been irrigated with antibiotic-containing saline solution and the trocars were removed and the peritoneal cavity deflated. The incision was closed with 4-0 Vicryl skin stitch. Dressing was applied. The patient was taken to the recovery room in satisfactory condition. One additional note on this is, after completion of duodenoileostomy, it was felt that formation of the second small bowel anastomosis would be somewhat unsafe due to the thickening of the mesentery, and we deferred to leave that as a subsequent possible stage additional procedure in this case. Physician physiotherapy assistant, Yanni Roper, played an essential role in assisting in this case, helping to position the patient, retract structures as needed, as well as suturing and cutting sutures when indicated. Her presence improved patient safety and decreased operative time. Anish Morton MD /[id number]
== END 2019-03-09 13:00 | disposition home or self-care (01) | DRG 621 ==
LOC: JP.SDSSCHI 07:20 → JP.SDS 07:20 → EDSTATUS 07:30 → JP.MS 13:40
PROVIDERS: ADMIT Surgery; ATTEND Surgery
PROC: 0D194ZB Bypass Duodenum to Ileum, Percutaneous Endoscopic Approach (ICD-10-PCS; principal; 2019-03-06)
PROC: 0FB24ZX Excision of Left Lobe Liver, Percutaneous Endoscopic Approach, Diagnostic (ICD-10-PCS; 2019-03-06)
PROC: 0BQT4ZZ Repair Diaphragm, Percutaneous Endoscopic Approach (ICD-10-PCS; 2019-03-06)
DX: E66.01 Morbid (severe) obesity due to excess calories (principal); F41.8 Other specified anxiety disorders; K21.9 Gastro-esophageal reflux disease without esophagitis; K44.9 Diaphragmatic hernia without obstruction or gangrene; G47.30 Sleep apnea, unspecified; E11.22 Type 2 diabetes mellitus with diabetic chronic kidney disease; N18.3 Chronic kidney disease, stage 3 (moderate); I12.9 Hypertensive chronic kidney disease with stage 1 through stage 4 chronic kidney disease, or unspecified chronic kidney disease; R16.0 Hepatomegaly, not elsewhere classified; R80.9 Proteinuria, unspecified; M54.2 Cervicalgia; G89.29 Other chronic pain; G54.0 Brachial plexus disorders; Z79.4 Long term (current) use of insulin; Z79.899 Other long term (current) drug therapy; Z68.43 Body mass index [BMI] 50.0-59.9, adult
CPT/HCPCS: 36415; 71111; 74240; 80053; 82962; 83036; 83735; 83880; 84100; 85025; 85027; 86850; 86900; 86901; 88307; 88313; 93931-LT; 93971-LT; 97110-GO; 97166-GO; A9270-GY; C9113; J0171; J0330; J0694; J1100; J1170; J1644; J1815; J1815-GY; J2001; J2060; J2405; J2704; J2710; J2795; J3010; J3410; J3411; J3420; J3475; J3490; J7030; J7042; J7050; J7120; Q9967